=== PATIENT | male | born 1965 | race Caucasian/White ===

== ENCOUNTER 2017-11-30 13:08 | Emergency (ER) | payer BC ==
--- NOTE | 2017-11-30 13:35 | CPEKG ---
Heart Rate: 73 RR Interval: 822 P-R Interval: 160 QRSD Interval: 98 QT Interval: 376 QTC Interval: 415 P [place]: 53 QRS [place]: 7 T Wave [place]: 15 EKG Severity - NORMAL ECG - EKG Impression: SINUS RHYTHM Electronically Signed By: Padilla Aquino 30-Nov-2017 14:52:35
--- NOTE | 2017-11-30 13:37 | EDPHY ---
H & P Stated Complaint: epigastric pain to mid back pain worsening--pt concerned for alc pancreatit Time Seen by Provider: 11/30/17 13:17 HPI/ROS: CHIEF COMPLAINT: Abdominal and back pain HISTORY OF PRESENT ILLNESS: This is a 52-year-old male with a history of hypertension and NSAID induced ulcer years ago who presents with abdominal pain and upper back pain. He tells me that his abdominal pain began weeks ago ( around mother's Day) with a diarrheal illness. Along with diarrhea he also experiences midepigastric pain He thought that it might all be related to alcohol consumption and he quit drinking for 6 days. He recovered from this illness and resumed drinking. He tells me that he will drink from 2-4 Pale Ales a day, but often goes days without drinking. When he resumed drinking, after quitting for six days, he had 2 pale Ales one night and 5 the following night. He again developed abdominal pain. The abdominal pain has persisted. He has not had nausea, vomiting, or recurrent diarrhea. No blood in his stool or dark stools. He has a daily bowel movement. No urinary symptoms. In addition, he is concerned about back pain. The pain is located along the medial aspect of his left scapula. He has some pain in his left upper arm; no numbness or weakness. He does have a history of a cervical disc herniation. He had a colonoscopy a year so ago that showed diverticulosis, otherwise normal. REVIEW OF SYSTEMS: A ten point review of systems was performed and is negative with the exception of the items mentioned in the HPI. Past medical history: 1. Hypertension Past surgical history: 2. Knee surgery Family history: Maternal grandfather at 50 of a heart attack Social history: He lives with his and 8-year-old daughter. He chews nicotine. He drinks 2-4Mike's Pale Alesdaily, but often goes days without drinking. No illicit drugs. 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 General Appearance: Alert. Vital signs reviewed. Eyes: Pupils equal and round, no conjunctival injection, no discharge. Anicteric. ENT, Mouth: Mucous membranes are moist, no oropharyngeal erythema or edema. Neck: No lymphadenopathy, supple. Respiratory: Lungs are clear to auscultation; no wheezes, rales, or rhonchi. Cardiovascular: Regular rate and rhythm; no murmur, rub, or gallop. Gastrointestinal: Abdomen is soft and nontender, no masses or organomegaly, bowel sounds normal. Skin: Warm and dry, no rashes on exposed skin, normal color. Rectal: Dark flecks of stool on the examining glove. Back: Nontender to palpation over the thoracolumbar spine. No CVAT. Extremities: No lower extremity edema, no calf tenderness or swelling. Neurological: Alert and oriented. Moving all four extremities easily and equally. Psychiatric: Normal affect. - Medical/Surgical History Hx Asthma: No Hx Chronic Respiratory Disease: No Hx Diabetes: No Hx Cardiac Disease: No Hx Renal Disease: No Hx Cirrhosis: No Hx Alcoholism: Yes Hx HIV/AIDS: No Hx Splenectomy or Spleen Trauma: No Other PMH: htn. gastric bleeds - Social History Smoking Status: Never smoked Constitutional: Initial Vital Signs Temperature (C) 37.0 C 11/30/17 13:12 Heart Rate 84 11/30/17 13:12 Respiratory Rate 18 11/30/17 13:12 Blood Pressure 122/88 H 11/30/17 13:12 O2 Sat (%) 97 11/30/17 13:12 O2 Delivery Mode Room Air Allergies/Adverse Reactions: No Known Allergies Allergy (Unverified 11/30/17 13:10) Home Medications: Medication Instructions Recorded Lisinopril 11/30/17 Medical Decision Making ED Course/Re-evaluation: Patient was serially examined while in the emergency department. His pain seems to be more localized in the left lower quadrant, raising the question of diverticulitis. At no time did he have a surgical abdomen. CBC, BMP, LFTs, lipase, stool guaiac all negative/normal. I was initially concerned about pancreatitis--no evidence for this or for cholecystitis. Appendicitis unlikely- -no leukocytosis, no fever, no significant localized RLQ pain. PUD/gastritis is high on the list in my ddx. CT scan of the abdomen is negative for diverticulitis. There is evidence of some constipation but otherwise the scan is normal. I reviewed all of the findings with the patient. He understands that the etiology of his abdominal pain remains unclear. He tells me that he has a daily bowel movement but he is willing to take MiraLax to see if that makes a difference in his discomfort. He will also resume an antacid. He has taken omeprazole in the past. He will follow up with GI. - Data Points Laboratory Results: Laboratory Results 11/30/17 14:55 11/30/17 14:55 Point of Care Test Results: Chemistry 11/30/17 11/30/17 15:45 15:00 POC Troponin I 0.00 ng/mL ng/mL 0.00 ng/mL ng/mL (0.00-0.08) (0.00-0.08) Departure - Departure Disposition: Home, Routine, Self-Care Clinical Impression: Abdominal pain Qualifiers: Abdominal location: generalized Qualified Code(s): R10.84 - Generalized abdominal pain Constipation Qualifiers: Constipation type: unspecified constipation type Qualified Code(s): K59.00 - Constipation, unspecified Condition: Good Instructions: Constipation (ED), Abdominal Pain (ED) Additional Instructions: As you know, the cause of your abdominal pain remains unclear. Your laboratories look fine, you're EKG and cardiac blood work looks normal, chest x- ray does not show any acute problem, and your abdominal CT scan does not show anything other than constipation. Even though you have been moving her bowels regularly, I recommend that you start MiraLax. Take a daily in the morning. You can buy this over-the- counter.. Referrals: Andi Astorga MD [[facility] Primary Care Provider] - As per Instructions Flakito Carreon MD [Medical Doctor] - As per Instructions
[2017-11-30] MEDS ORDERED: LIDOCAINE 4%/MENTHOL 1% PATCH TD ONE (14:13)
[2017-11-30 15:07] LABS: PLATELET COUNT 258 10^3/uL (150-400)
[2017-11-30 17:10] VITALS: BP 113/96
== END 2017-11-30 18:00 | disposition home or self-care (01) ==
DX: K59.00 Constipation, unspecified (principal); I10 Essential (primary) hypertension
CPT/HCPCS: 84484-PO

== ENCOUNTER 2018-04-18 07:57 | Emergency (ER) | payer BC ==
[2018-04-18] MEDS ORDERED: ONDANSETRON 4 MG/2 ML VIAL IVP ONE (08:12)
[2018-04-18] MEDS ORDERED: NS 1,000 ML IV ONE (08:12)
[2018-04-18] MEDS ORDERED: fentaNYL 100 MCG/2 ML INJ IVP ONE (08:12)
--- NOTE | 2018-04-18 08:17 | EDPHY ---
HPI/HX/ROS/PE/MDM Narrative: CHIEF COMPLAINT: Abdominal pain, vomiting HISTORY OF PRESENT ILLNESS: The patient is a 53 y/o male with a history of hypertension and NSAID induced ulcer complaining of abdominal pain, nausea, and vomiting. Last night, he was reading to his child when symptoms began. The pain is described as a sharp stabbing sensation which comes in waves but has not fully resolved since it began. Pain extends from the left flank into the left lateral abdomen, around to the left lower quadrant and into the testicles. Pain is worse with deep breathing. He reports vomiting several times last night. He has associated nausea. He denies difficulty urinating, frequent urination, rash , swelling in the testicles, or any other associated symptoms. He denies history of kidney stones or cardiac conditions. No fever, chills, chest pain, shortness of breath, palpitations, diarrhea, urinary complaints, headache, lightheadedness. REVIEW OF SYSTEMS: A comprehensive 10 system review of systems is otherwise negative aside from elements mentioned in the history of present illness and medical decision making. PAST MEDICAL HISTORY: Hypertension, NSAID induced ulcer, knee replacement, gonadal artery varicocele surgery SOCIAL HISTORY: Lives in [place], , self-employed VITAL SIGNS: Reviewed by me GENERAL: Well-developed, well-nourished, resting comfortably in no respiratory distress. HEENT: Atraumatic. Eyes: No icterus, no injection. Mouth: moist mucous membranes. No erythema or lesions. Neck: supple with no adenopathy. LUNGS: Clear to auscultation bilaterally, no wheezes, rhonchi or rales. CARDIAC: Regular rate and rhythm, no rubs, murmurs or gallops. ABDOMEN: Tenderness to palpation from the left flank, into the left lateral abdomen, around to the left lower quadrant. Soft, nondistended, bowel sounds normal. UROGENITAL: External genitals normal to visual inspection. BACK: No CVA tenderness. EXTREMITIES: No trauma. No edema. Range of motion is normal throughout. NEURO: Alert and oriented, grossly nonfocal. SKIN: Warm and dry, no rash. PSYCHIATRIC: Normal mentation, no agitation. ED Course: CT: Abdominal CT was obtained. I viewed the images myself on the PACS system. My interpretation of the images is: negative for acute findings. The radiologist interpretation is negative for acute findings. I discussed the x- ray findings with the patient. The patient presents with pain extending from the left flank and left lateral abdomen, into the left lower quadrant and extending into the testicles. He has associated nausea and vomiting. He denies rash or urinary complaints. He denies history of kidney stones or cardiac condition. Areas of pain or tender to palpation. Due to presentation and history of hypertension, abdominal CT will be performed to evaluate for kidney stones, abdominal aortic aneurysm, and other potential causes. Plan for CT and labs including CBC, basic metabolic panel, and urinalysis. 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 I reassessed the patient and informed him of the results of his work up, which is largely negative. On reexamination patient continues to have no right sided discomfort, mild to moderate LUQ, Left flank, Left mid quad tenderness but no guarding or rebound. exam: no testicular pain or swelling. Penis normal. No scrotal swelling. Discussed CT scan with IV contrast to evaluate for diverticulits, patient declines. Toradol given. UA negative for blood or signs of infectino. Patient needed to use the restroom again during my exam. At this point, I feel he can be discharged with ibuprofen for pain and magnesium citrate for possible constipation. Follow up instructions and return precautions given. He agrees to this course of action. MDM: Upper abdominal pain including but not limited to cholecystitis, gastritis, peptic ulcers disease, and pancreatitis. Differential diagnosis of the patient' s flank pain and upper abdominal pain was considered including but not limited to musculoskeletal causes, kidney stone, pyelonephritis, shingles, and intra- abdominal causes such as diverticulitis and constipation. - Data Points Imaging Results: Abdomen/Pelvis CT 04/18/18 08:12 Impression: No source for left flank pain identified. Results called to Dr. Mohamud at 8:51 AM. Imaging: Discussed imaging studies w/ yardage caller Radiologist Laboratory Results: Laboratory Results 04/18/18 08:20 04/18/18 08:20 Medications Given: Discontinued Medications Fentanyl (Sublimaze) 75 mcg IVP EDNOW ONE Stop: 04/18/18 08:13 Last Admin: 04/18/18 08:20 Dose: 75 mcg Sodium Chloride (Ns) 1,000 mls @ 0 mls/hr IV EDNOW ONE; Wide Open PRN Reason: Protocol Stop: 04/18/18 08:13 Last Admin: 04/18/18 08:20 Dose: 1,000 mls Ketorolac Tromethamine (Toradol) 30 mg IVP EDNOW ONE Stop: 04/18/18 09:52 Last Admin: 04/18/18 09:54 Dose: 30 mg Ondansetron HCl (Zofran) 4 mg IVP EDNOW ONE Stop: 04/18/18 08:13 Last Admin: 04/18/18 08:20 Dose: 4 mg General Time Seen by Provider: 04/18/18 08:05 Initial Vital Signs: Initial Vital Signs Temperature (C) 36.2 C 04/18/18 07:58 Heart Rate 62 04/18/18 07:58 Respiratory Rate 18 04/18/18 07:58 Blood Pressure 146/96 H 04/18/18 07:58 O2 Sat (%) 97 04/18/18 07:58 O2 Delivery Mode Room Air Allergies/Adverse Reactions: No Known Allergies Allergy (Unverified 11/30/17 13:10) Home Medications: Medication Instructions Recorded Lisinopril 11/30/17 Cephalexin [Keflex (RX)] 500 mg PO TID 7 Days cap 04/18/18 Departure - Departure Disposition: Home, Routine, Self-Care Clinical Impression: Flank pain Abdominal pain Qualifiers: Abdominal location: left lower quadrant Qualified Code(s): R10.32 - Left lower quadrant pain Condition: Good Instructions: Acute Abdominal Pain (ED), Flank Pain (ED) Additional Instructions: 1. There is no evidence of kidney stone, bowel obstruction, diverticulitis, or urinary tract infection on todays evaluation. 2. Some of your symptoms may be the results of constipation and bowel spasm. I recommend that you obtain magnesium citrate and take as directed for possible constipation. 3. Take 600 mg ibuprofen every 8 hours with food for pain as needed. 4. Your urine has been sent for cultures. If it indicates you have an infection , we will contact you. You have been given a prescription of Keflex. If the urine is positive you may start taking the Keflex. 5. Follow up with your primary care provider if you're not improving in the next 2-3 days. Be seen sooner if you develops fever, vomiting, worsening pain despite the above treatment, diarrhea, or other concerns. 6. You been given referral to Dr. Dinero who is with Gastroenterology. If you continued to have mild discomfort or intermittent episodes of discomfort please follow up with Gastroenterology. Referrals: Bruno Dinero MD [Medical Doctor] - As per Instructions NONE *PRIMARY CARE P,. [Primary Care Provider] - As per Instructions Prescriptions: Cephalexin [Keflex (RX)] 500 mg PO TID 7 Days cap Report Scribed for: Sol Mohamud Report Scribed by: Cheyenne Galaviz Date of Report: 04/18/18 Time of Report: 08:40 Physician Review and Approval Statement: Portions of this note were transcribed by a manager medical device. I personally performed a history, physical exam, medical decision making, and confirmed accuracy of information the transcribed note.
[2018-04-18 08:30] LABS: PLATELET COUNT 307 10^3/uL (150-400)
[2018-04-18] MEDS ORDERED: KETOROLAC 30 MG/1 ML SDV IVP ONE (09:51)
[2018-04-18 10:25] VITALS: BP 114/81
== END 2018-04-18 10:25 | disposition home or self-care (01) ==
DX: R10.32 Left lower quadrant pain (principal); E86.9 Volume depletion, unspecified
CPT/HCPCS: 96374; J1885; J2405; J3010